=== PATIENT | male | born 1950 | race Caucasian/White ===

== ENCOUNTER → 2016-09-01 | Day surgery (SDC) | payer OTHER ==
--- NOTE | 2016-08-31 09:12 | MH ---
cc: JOHNNY MONET DATE OF ADMISSION: 09/01/2016 CHIEF COMPLAINT Dysphagia. HISTORY OF THE PRESENT ILLNESS This is a 65-year-old male previous history of head and neck cancer, head and neck lesion and radiation therapy from unknown primary. He has had no evidence of disease but has had problems with dysphagia. He has had previous dilations and these have helped him. Plan is for esophageal dilation, multiple passes soft rubber dilator. PAST MEDICAL HISTORY Head and neck cancer 2012. MEDICATIONS Include: 1. Aspirin. 2. Doxazosin. 3. Lortab as needed. PHYSICAL EXAMINATION GENERAL: Well-developed, well-nourished male in no apparent distress. HEENT: Normocephalic, atraumatic. Extraocular motions intact. The external ear canal is clear. Lips, oral mucosa and oropharynx show no lesion. NECK: Shows no masses. CHEST: Clear to auscultation. HEART: Regular rate. ABDOMEN: Soft. EXTREMITIES: No lesions. NEUROLOGICAL: Examination nonfocal. ASSESSMENT This is a 65-year-old male with dysphagia. He has had head and neck cancer, postradiation. He is to undergo esophageal dilation multiple passes soft rubber dilators. The risks and benefits were discussed with the patient. The risks include not limited to those of anesthesia, bleeding, unfavorable scarring, hematoma, abscess, infection, perforation, airway obstruction. The patient states he understands and accepts risk of the procedure. MD JOEL Bonner/OSORIO /9:55 PM /10:30 PM
[~2016-09-01] VITALS: Ht 188 cm; Wt 81.8 kg
[~2016-09-01] MED LIST: DEXAMETHASONE SOD PHOS 4 MG/ML VIAL ONE; INSULIN HUMAN REGULAR 1,000 UNITS/10 ML VIAL SQ PRN; LACTATED RINGER'S 1000 ML IV SCH; LEVO50TA4 PO; METOPROLOL TARTRATE 25 MG TAB PO PRN; ONDANSETRON HCL 4 MG/2 ML VIAL IV PUSH ONE; PROPOFOL 200 MG/20 ML AMP IV ONE; SODIUM CHLORID 0.9% 500 ML IV SCH
[2016-09-01 08:13] VITALS: BP 138/79; PULSE 79; RESP 16; TEMP 98.3; O2SAT 98
[2016-09-01 08:49] LABS: AUTOMATED NEUTROPHIL # 5.5 TH/MM3 (1.8-7.7); BASOPHIL % 0.4 % (0.0-2.0); EOSINOPHIL # 0.2 TH/MM3 (0-0.4); EOSINOPHIL % 2.4 % (0.0-4.0); HEMATOCRIT 41.2 % (39.0-51.0); HEMO FLAGS DIFF FINAL; LYMPH % 20.2 % (9.0-44.0); LYMPHOCYTE # 1.6 TH/MM3 (1.0-4.8); MEAN CORPUSCULAR HEMOGLOBIN 33.7 PG (27.0-34.0); MEAN CORPUSCULAR HGB CONC 34.4 % (32.0-36.0); MONO % 6.7 % (0.0-8.0); NEUT % 70.3 % (16.0-70.0); PLATELET COUNT 259 TH/MM3 (150-450); RED CELL DISTRIBUTION WIDTH 14.8 % (11.6-17.2); WHITE BLOOD COUNT 7.8 TH/MM3 (4.0-11.0)
--- NOTE | 2016-09-01 10:18 | MP ---
cc: JOHNNY MONET M.D. DATE OF SURGERY 09/01/2016 INDICATIONS This is a 65-year-old male with a previous history of head neck cancer had radiation therapy. Hosea has had dysphagia. He is undergoing another of a series dilations of the esophagus for dysphagia with multiple passes of soft rubber dilators. PREOPERATIVE DIAGNOSIS Dysphagia POSTOPERATIVE DIAGNOSIS Dysphagia PROCEDURE Esophageal dilation, multiple passes of soft rubber dilators. SUMMARY The patient brought to the operating room, placed in the supine position, successfully placed under sedation and prepared in the usual fashion for this procedure. The soft tissues of the head and neck were palpated. There was no lesion and soft rubber dilators were used going from 40-Macedonian to 54-Macedonian in sequence with easy passage. There was no evidence of bleeding. He tolerated the procedure well and the airway remained stable. He was awakened and taken to recovery in stable condition. MD JOEL Bonner/ERIC /10:09 AM /10:13 AM
[2016-09-01 10:45] VITALS: BP 146/90; PULSE 64; RESP 16; TEMP 97.8; O2SAT 100
== END | disposition home or self-care (01) ==
LOC: HSDC 07:21
PROVIDERS: ATTEND Specialist
DX: R13.10 Dysphagia, unspecified (principal); C76.0 Malignant neoplasm of head, face and neck; Z79.82 Long term (current) use of aspirin; Z92.3 Personal history of irradiation
CPT/HCPCS: 00740; 43450; 85025; J2405; J3010; J1100

== ENCOUNTER → 2017-05-13 | Day surgery (SDC) | payer OTHER ==
[~2017-05-13] VITALS: Ht 188 cm; Wt 88.0 kg
[~2017-05-13] MED LIST changes: +ASPI81CH37 CHEW; +CHLORHEXIDINE GLUCONATE 2 % 1 PACK (2 CLOTHS) TOPICAL PRN; +CIPROFLOXACIN/DEXT 400 MG/200 ML IV PRN; -DEXAMETHASONE SOD PHOS 4 MG/ML VIAL ONE; +LACTATED RINGER'S 1000 ML IV PRN; -LACTATED RINGER'S 1000 ML IV SCH; +LIDOCAINE 2% JELLY 30 ML TUBE ONE; +MIDAZOLAM HCL 2 MG/2 ML VIAL IV ONE; -ONDANSETRON HCL 4 MG/2 ML VIAL IV PUSH ONE; +POVIDONE IODINE 5% (ANTISEPSIS KIT) 4 APPLICATIONS EACH NARE PRN; +SOD PHOSPHATE/SOD BIPHOSPHATE (ADULT) ENEMA 133ML RECTAL PRN; +SODIUM CHLORID 0.9% 500 ML IV PRN; -SODIUM CHLORID 0.9% 500 ML IV SCH; +VIAG100T PO
[2017-05-13 07:16] LABS: AUTOMATED NEUTROPHIL # 7.3 TH/MM3 (1.8-7.7); BASOPHIL # 0.1 TH/MM3 (0-0.2); BASOPHIL % 0.5 % (0.0-2.0); EOSINOPHIL # 0.3 TH/MM3 (0-0.4); HEMO FLAGS DIFF FINAL; LYMPH % 17.6 % (9.0-44.0); LYMPHOCYTE # 1.8 TH/MM3 (1.0-4.8); MEAN CELL VOLUME 96.6 FL (80.0-100.0); MEAN CORPUSCULAR HEMOGLOBIN 33.3 PG (27.0-34.0); MEAN CORPUSCULAR HGB CONC 34.5 % (32.0-36.0); MONO % 8.3 % (0.0-8.0); NEUT % 70.6 % (16.0-70.0); PLATELET COUNT 303 TH/MM3 (150-450); RED BLOOD COUNT 4.24 MIL/MM3 (4.50-5.90); RED CELL DISTRIBUTION WIDTH 14.6 % (11.6-17.2); WHITE BLOOD COUNT 10.3 TH/MM3 (4.0-11.0)
--- NOTE | 2017-05-13 08:51 | PD.OP ---
Operative Report Date of Surgery: May 13, 2017 Preoperative Diagnosis: Elevated PSA with prostate lesion at left apex Postoperative Diagnosis: Same Procedure: Transrectal ultrasound with prostate needle biopsies Anesthesia: MAC Surgeon: Rudy Rodriguez Roofing Apprentice(s): None Resident Surgeon: None Operation and Findings: 66-year-old male with findings of an elevation of his PSA and MRI finding a left apex lesion consistent with PIRADS 5. Decision made to bring the patient to the operating room and undergo transrectal ultrasound of the prostate with prostate needle biopsies. Risk and benefits were discussed and the patient was willing to proceed. Patient received his fleets enema this morning and IV antibiotics. He was brought to the operating room on the stretcher and placed in the left lateral recumbent position. The ultrasound probe was inserted in the rectum and volumetric measurements of the prostate were then taken. The prostate was noted to be 17.27 cm. Calcifications were identified on the left side of the prostate. A 12 core biopsy was taken from the prostate. For additional cores were taken at the area of the left apex. This was sent to pathology. He tolerated procedure well and will follow-up in the office in the next one to weeks. Rudy Rodriguez DO May 13, 2017 08:50
[2017-05-13 09:20] VITALS: BP 138/90; PULSE 74; RESP 18; TEMP 97.4; O2SAT 100
--- NOTE | 2017-05-13 13:45 | EKG ---
Date Performed: 05/13/2017 Time Performed: 06:57:59 PTAGE: 66 years EKG: Sinus rhythm WITH Premature atrial contractions POSSIBLE RIGHT VENTRICULAR CONDUCTION DELAY BORDERLINE ECG Compar ed to prior electrocardiogram, Premature atrial contraction are now present PREVIOUS TRACING : 03/10/2016 07.44 DOCTOR: Benny Patton Interpretating Date/Time 05/13/2017 13:43:56
== END | disposition home or self-care (01) ==
LOC: HSDC 06:03
PROVIDERS: ATTEND Urology
DX: C61 Malignant neoplasm of prostate (principal); R97.20 Elevated prostate specific antigen [PSA]; I49.1 Atrial premature depolarization; E03.9 Hypothyroidism, unspecified; M54.9 Dorsalgia, unspecified; F12.10 Cannabis abuse, uncomplicated; F17.210 Nicotine dependence, cigarettes, uncomplicated; Z79.82 Long term (current) use of aspirin; Z79.899 Other long term (current) drug therapy
CPT/HCPCS: 00902; 55700; 85025; 88305; 93005; J0744; J2250; J3010; J7120